=== PATIENT | female | born 1950 | race Caucasian/White ===

== ENCOUNTER 2018-01-23 19:52 | Emergency (ER) | payer OTHER ==
[~2018-01-23] VITALS: Ht 162.6 cm; Wt 69.4 kg
[~2018-01-23 19:52] MED LIST: NORVASC10 MG; PRILOSEC40 MG PO
[2018-01-23 21:45] VITALS: BP 140/70
== END 2018-01-23 21:46 | disposition home or self-care (01) ==
LOC: M.ERS 19:52
DX: S99.822A Other specified injuries of left foot, initial encounter (principal); I10 Essential (primary) hypertension; Z87.442 Personal history of urinary calculi; X50.1XXA Overexertion from prolonged static or awkward postures, initial encounter; Y93.89 Activity, other specified; Y92.89 Other specified places as the place of occurrence of the external cause; Y99.8 Other external cause status

== ENCOUNTER → 2021-01-29 | Outpatient (CLI) | payer MEDICARE ==
[~2021-01-29] MED LIST changes: +B-125000 MC1; +CALCIUM500 MG; +FISH OIL 1,0001 EAC9; +FOSAMAX 70 MG T70 MG PO; +SUPER THERAVIT1 EACH; +VIT D
== END ==
LOC: M.PC 08:00
PROVIDERS: ATTEND Physical Medicine & Rehabilitation
DX: M25.551 Pain in right hip (principal); M25.552 Pain in left hip; M51.36 Other intervertebral disc degeneration, lumbar region; M48.061 Spinal stenosis, lumbar region without neurogenic claudication; M47.816 Spondylosis without myelopathy or radiculopathy, lumbar region; G96.191 Perineural cyst; M16.11 Unilateral primary osteoarthritis, right hip

== ENCOUNTER → 2021-02-05 | Outpatient (CLI) | payer MEDICARE | END | disposition home or self-care (01) | LOC: M.PC 09:13 | PROVIDERS: ATTEND Physical Medicine & Rehabilitation | DX: M51.16 Intervertebral disc disorders with radiculopathy, lumbar region (principal); M48.061 Spinal stenosis, lumbar region without neurogenic claudication; M47.27 Other spondylosis with radiculopathy, lumbosacral region; M79.604 Pain in right leg; I10 Essential (primary) hypertension; M16.11 Unilateral primary osteoarthritis, right hip; M81.0 Age-related osteoporosis without current pathological fracture; M25.551 Pain in right hip; Z98.890 Other specified postprocedural states; Z79.899 Other long term (current) drug therapy ==

== ENCOUNTER → 2021-02-19 | Outpatient (CLI) | payer MEDICARE | LOC: M.PC 08:43 | PROVIDERS: ATTEND Physical Medicine & Rehabilitation | DX: M47.816 Spondylosis without myelopathy or radiculopathy, lumbar region (principal); M51.26 Other intervertebral disc displacement, lumbar region; M48.061 Spinal stenosis, lumbar region without neurogenic claudication; M16.11 Unilateral primary osteoarthritis, right hip; I10 Essential (primary) hypertension; M79.604 Pain in right leg ==

== ENCOUNTER → 2021-04-16 | Outpatient (CLI) | payer MEDICARE | LOC: M.PC 08:46 | PROVIDERS: ATTEND Physical Medicine & Rehabilitation | DX: M47.816 Spondylosis without myelopathy or radiculopathy, lumbar region (principal); M51.26 Other intervertebral disc displacement, lumbar region; M48.061 Spinal stenosis, lumbar region without neurogenic claudication; M16.11 Unilateral primary osteoarthritis, right hip; I10 Essential (primary) hypertension; M79.604 Pain in right leg ==